=== PATIENT | male | born 1995 | race Caucasian/White ===

== ENCOUNTER 2016-05-18 04:24 | Emergency (ER) | payer SELFPAY | END 2016-05-18 04:34 | disposition left against medical advice (07) | LOC: ER1 04:24 | DX: Z53.21 Procedure and treatment not carried out due to patient leaving prior to being seen by health care provider (principal) ==

== ENCOUNTER 2016-08-04 10:30 | Emergency (ER) | payer SELFPAY | END 2016-08-04 12:00 | disposition home or self-care (01) | LOC: ER1 10:30 | DX: J02.0 Streptococcal pharyngitis (principal); F17.210 Nicotine dependence, cigarettes, uncomplicated | CPT/HCPCS: 87081; 87880; 99283 ==